=== PATIENT | female | born 1970 | race Caucasian/White ===

== ENCOUNTER 2018-05-31 15:37 | Emergency (ER) | payer BC ==
[2018-05-31 15:44] VITALS: BP 124/85; PULSE 98; RESP 16; TEMP 98.1
--- NOTE | 2018-05-31 15:50 | ED ---
Fall HPI - General Chief Complaint: Fall Stated Complaint: Ankle Injury, Slipped on ice Time Seen by Provider: 05/31/18 15:45 Source: patient Mode of arrival: ambulatory - History of Present Illness Initial Comments: 48yo female presenting today for chief complaint of left ankle injury after slipping falling ice. Patient states that just prior to arrival she slipped on ice twisting her left ankle. Patient denies head injury back pain neck pain or loss of consciousness. Patient denies use of anticoagulants. Patient states there is some soft tissue swelling of the left ankle. She states she has pain with fully weight bearing. Patient states it hurts with full range of motion of the left ankle. Patient denies any numbness tingling loss sensation coolness or pallor of the extremity. Remaining review of systems negative, patient denies any injury to any other extremity, fever, chills, shortness of breath, chest pain, back pain, abdominal pain, nausea or vomiting, numbness or tingling, dysuria or hematuria, constipation or diarrhea, headaches or visual changes, or any other complaints. Pt states she had previous nerve injury of the left LE and has residual decreased sensation distal to knee--no changes. - Related Data Previous Rx's Medication Instructions Recorded Ibuprofen 800 mg PO Q8H PRN 7 Days #21 tablet 05/31/18 Allergies Allergy/AdvReac Type Severity Reaction Status Date / Time acetaminophen Allergy Nausea & Verified 05/31/18 15:41 Vomiting Review of Systems ROS Statement: Those systems with pertinent positive or pertinent negative responses have been documented in the HPI. ROS Other: All systems not noted in ROS Statement are negative. Past Medical History Past Medical History: No Reported History History of Any Multi-Drug Resistant Organisms: None Reported Additional Past Surgical History / Comment(s): oral surgery Past Psychological History: No Psychological Hx Reported Smoking Status: Never smoker Past Alcohol Use History: Occasional Past Drug Use History: None Reported General Exam - General Exam Comments Initial Comments: General: The patient is awake and alert, in no distress, and does not appear acutely ill. Eye: Pupils are equal, round and reactive to light, extra-ocular movements are intact. No nystagmus. There is normal conjunctiva bilaterally. No signs of icterus. Ears, nose, mouth and throat: There are moist mucous membranes and no oral lesions. Neck: The neck is supple, there is no tenderness or JVD. Cardiovascular: There is a regular rate and rhythm. No murmur, rub or gallop is appreciated. Respiratory: Lungs are clear to auscultation, respirations are non-labored, breath sounds are equal. No wheezes, stridor, rales, or rhonchi. Musculoskeletal: Upon inspection of the ankles bilaterally there is soft tissue swelling over the lateral malleolus of the left ankle. Patient refuses to fully range at the left ankle secondary painful range of motion at the knee and hip of the left lower extremity. With full strength. Sensation intact both proximal and distal to injury site. No evidence of foot drop. Patient tender to palpation over the lateral malleolus no tenderness to patient the forefoot. DP pulses equal bilaterally 2+. Capillary refill less than 2 seconds Neurological: A&O x 3. CN II-XII intact, There are no obvious motor or sensory deficits. Coordination appears grossly intact. Speech is normal. Skin: Skin is warm and dry and no rashes or lesions are noted. Psychiatric: Cooperative, appropriate mood & affect, normal judgment. Limitations: no limitations Course Vital Signs 05/31/18 15:41 Temperature 98.1 F Pulse Rate 98 Respiratory 16 Rate Blood Pressure 124/85 O2 Sat by Pulse 100 Oximetry Medical Decision Making - Medical Decision Making 48 year presenting for left ankle pain. Patient neurovascularly intact upon examination. Nondisplaced fibula fracture on x-ray. Patient neurovascularly intact. Patient placed in posterior mold splint with stirrups. Patient given a prescription for crutches and given nonweightbearing instruction as well as instruction to follow-up with orthopedic surgery in the next 2-3 days. Return parameters were discussed at length the patient who verbalizes understanding. Denied questions aware of all follow-up instruction. Case discussed with Dr. Miramontes, who reviewed imaging studies. Disposition Clinical Impression: Fibula fracture, Ankle sprain, Fall due to ice or snow Disposition: HOME SELF-CARE Condition: Good Instructions (If sedation given, give patient instructions): Ankle Fracture (ED ) Additional Instructions: Please use medication as discussed. Please follow-up with orthopedic surgery within the next week. Please return to emergency room if the symptoms increase or worsen or for any other concerns. Prescriptions: Ibuprofen 800 mg PO Q8H PRN 7 Days #21 tablet PRN Reason: Pain Is patient prescribed a controlled substance at d/c from ED?: No Referrals: Paul Gallagher MD [Primary Care Provider] - 1-2 days Omar Saavedra PAC [PHYSICIAN EQUIPMENT PROCESSOR] - 1-2 days Time of Disposition: 16:01
--- NOTE | 2018-05-31 16:16 | XR ---
EXAMINATION TYPE: XR ankle complete LT DATE OF EXAM: 05/31/2018 COMPARISON: NONE HISTORY: Foot pain TECHNIQUE: 3 views FINDINGS: There is soft tissue swelling over the lateral malleolus. There is nondisplaced oblique fra cture distal fibula. There is no dislocation. Ankle mortise is anatomic. IMPRESSION: Acute fracture of the distal fibula.
--- NOTE | 2018-05-31 16:17 | XR ---
EXAMINATION TYPE: XR foot complete LT DATE OF EXAM: 05/31/2018 COMPARISON: NONE HISTORY: Foot pain ankle pain TECHNIQUE: 3 views FINDINGS: Metatarsals are intact. I see no fracture nor dislocation. Joint spaces are normal. There a re no erosions. IMPRESSION: Negative left foot exam. Nondisplaced distal fibula fracture is noted.
== END 2018-05-31 16:30 | disposition home or self-care (01) ==
LOC: EC 15:37
DX: S82.832A Other fracture of upper and lower end of left fibula, initial encounter for closed fracture (principal); S93.402A Sprain of unspecified ligament of left ankle, initial encounter; Z88.6 Allergy status to analgesic agent; W00.0XXA Fall on same level due to ice and snow, initial encounter; Y92.009 Unspecified place in unspecified non-institutional (private) residence as the place of occurrence of the external cause; X50.1XXA Overexertion from prolonged static or awkward postures, initial encounter
CPT/HCPCS: 29515; 99283

== ENCOUNTER 2019-03-02 06:17 | Day surgery (SDC) | payer BC ==
[2019-02-23 14:55] VITALS: BMI 24.4
--- NOTE | 2019-03-01 17:51 | P.HPOB ---
History of Present Illness H&P Date: 03/01/19 Chief Complaint: High grade cervical dysplasia. This patient is a pleasant 48 yr female who initially presented to me for a yearly examination and pap smear. Last pap smear prior was >10 years. 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 June and I discussed options and plan is to proceed with colposcopy and LEEP excision of the ecto/endo cervix. Review of Systems All systems: negative Past Medical History Past Medical History: No Reported History Additional Past Medical History / Comment(s): HGSIL of cervix 12/2018 History of Any Multi-Drug Resistant Organisms: None Reported Additional Past Surgical History / Comment(s): oral surgery LAST WEEK-OUT PT. WISDOM TEETH REMOVED Past Anesthesia/Blood Transfusion Reactions: No Reported Reaction Past Psychological History: No Psychological Hx Reported Smoking Status: Never smoker Past Alcohol Use History: None Reported Past Drug Use History: None Reported - Past Family History Mother Family Medical History: Deep Vein Thrombosis (DVT) Medications and Allergies Home Medications Medication Instructions Recorded Confirmed Type Ibuprofen [Advil] 200 mg PO Q8HR PRN 02/23/19 02/23/19 History Allergies Allergy/AdvReac Type Severity Reaction Status Date / Time acetaminophen Allergy Nausea & Verified 02/23/19 14:47 Vomiting adhesive tape Allergy CAUSED Verified 02/23/19 14:56 BURN AT APPLICATION SITE Exam - OBG Physical Exam Abdomen: bowel sounds normal, no diffuse tenderness, no bruit present, no guarding noted, no hepatomegaly, no splenomegaly, no mass Vulva: both: normal Vagina: normal moisture, no discharge Cervix: no lesion, no discharge Uterus: normal size, normal contour Results Colposcopy on 01/27 revealed DARVIN II of the ectocervix. 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 Plan is colposcopy with LEEP of the ecto and endocervix. I had a long discussion with June about this procedure and risks: infection, bleeding, possible cervical incompetence, and possible need for further surgery. All of her questions have been answered and a written consent obtained. (1) DARVIN II (cervical intraepithelial neoplasia II) Status: Acute Code(s): N87.1 - MODERATE CERVICAL DYSPLASIA SNOMED Code(s): 288317451
[~2019-03-02 06:17] MED LIST: HYDROmorphone 0.5 MG/0.5 ML SYRINGE IVP PRN; LACTATED RINGERS 1,000 ML IV SCH; LIDOCAINE 1% 20 ML VIAL (10MG/ML) FOR IV START INTRADERMA PRN; ONDANSETRON 4 MG/2 ML VIAL IVP ONE; Pre Op ABX Message 1 EACH MISC MISCELLANE ONE
[2019-03-02] MEDS ORDERED: IODINE/POTASS IOD (LUGOLS) 8 ML BTL TOPICAL ONE (07:21)
[2019-03-02] MEDS ORDERED: FERRIC SUBSULFATE (MONSELS) JAR TOPICAL ONE (07:21)
[2019-03-02] MEDS ORDERED: fentaNYL (PF) 50 MCG/ML 2 ML AMP ONE (07:25)
[2019-03-02] MEDS ORDERED: MIDAZOLAM 2 MG/2 ML VIAL ONE (07:25)
[2019-03-02] MEDS ORDERED: KETOROLAC 30 MG/ML 1 ML VIAL ONE (07:25)
[2019-03-02] MEDS ORDERED: LIDOCAINE 1% INJ 10MG/ML (20 ML MDV) ONE (07:25)
[2019-03-02] MEDS ORDERED: PROPOFOL 10 MG/ML 20 ML VIAL IV ONE (07:25)
--- NOTE | 2019-03-02 08:08 | P.OP ---
Date of Procedure: 03/02/19 Preoperative Diagnosis: High grade cervical dysplasia Postoperative Diagnosis: Same Procedure(s) Performed: Colposcopy with LEEP excision of the ectocervix endocervix Anesthesia: MAC Surgeon: Fadi Medina Estimated Blood Loss (ml): 25 Urine output (ml): 15 Pathology: other (Ectocervix and endocervix) Condition: stable Disposition: PACU Indications for Procedure: Please see dictated H&P for intimate details of this patient's admission. Brief summary this is a pleasant 48-year-old female with high-grade ectocervical dysplasia on colposcopy. Patient I discussed treatment options and elected proceed with LEEP excision of this area. Patient understands this surgery and risks including risks of infection, bleeding, possible recurrence or persistence of this lesion. All the patient's questions are answered and a written consent is obtained. Operative Findings: This patient had acetowhite changes as demarcated in the office. Description of Procedure: This patient is taken to the operating room where she is laid in the supine position. She subsequently was general mask anesthesia without incident. With adequate level of anesthesia she has a vaginal perineal prep and drape. She's placed in dorsal lithotomy position. First drain the bladder for 15 mL of clear urine. The laser speculum was placed in the vagina and the cervix is well visualized. Colposcopy is performed with Lugol solution area of abnormality is demarcated. With this done using a large LEEP loop at a 60/70 cutting/cautery setting the entire ectocervix is excised. Small LEEP loop was then used to excise some of the endocervix. Cauterization is then done of the endocervical and ectocervical margins in bed. Excellent hemostasis is noted at this time. Monsel solution is applied for added hemostasis. There are no complications. All counts are correct 3. Patient is awakened from anesthesia and taken recovery room in satisfactory condition.
[2019-03-02 08:14] VITALS: TEMP 97.7
[2019-03-02 08:48] VITALS: RESP 18
[2019-03-02 09:01] VITALS: BP 113/80; PULSE 83
== END 2019-03-02 09:16 | disposition home or self-care (01) ==
LOC: OR 06:17
PROVIDERS: ATTEND Obstetrics & Gynecology
DX: N87.1 Moderate cervical dysplasia (principal); Z91.048 Other nonmedicinal substance allergy status; Z88.6 Allergy status to analgesic agent; Z98.818 Other dental procedure status; Z82.49 Family history of ischemic heart disease and other diseases of the circulatory system
CPT/HCPCS: 57461; J2250; J2405; J2001; J3010; J1885; J2704; 88305; 88307

== ENCOUNTER → 2019-05-29 | Outpatient (CLI) | payer BC ==
--- NOTE | 2019-05-29 09:55 | MM ---
Reason for exam: screening (asymptomatic). Baseline mammogram. History: Patient is nulliparous. Took hormonal contraceptives for 13 years beginning at age 21. Physical Findings: Nurse did not find any significant physical abnormalities on exam. MG Screening Mammo w CAD Bilateral CC and MLO view(s) were taken. The breast tissue is heterogeneously dense. This may lower the sensitivity of mammography. No suspicious abnormality. These results were verbally communicated with the patient and result sheet given to the patient on 05/29/19. ASSESSMENT: Negative, BI-RAD 1 RECOMMENDATION: Routine screening mammogram of both breasts in 1 year.
== END | disposition home or self-care (01) ==
LOC: RADMAMWWP 08:20
PROVIDERS: ATTEND Obstetrics & Gynecology
DX: Z12.31 Encounter for screening mammogram for malignant neoplasm of breast (principal)
CPT/HCPCS: 77067

== ENCOUNTER → 2021-05-26 | Outpatient (CLI) | payer BC ==
--- NOTE | 2021-05-29 08:44 | MM ---
Reason for exam: screening (asymptomatic). Last mammogram was performed 2 years ago. History: Patient is nulliparous. Took hormonal contraceptives for 13 years beginning at age 21. Physical Findings: A clinical breast exam by your physician is recommended on an annual basis and results should be correlated with mammographic findings. MG Screening Mammo w CAD Bilateral CC and MLO view(s) were taken. Prior study comparison: May 29, 2019, bilateral MG screening mammo w CAD. Finding: There is an obscured mass in the central position of the left breast. ASSESSMENT: Incomplete: need additional imaging evaluation, BI-RAD 0 RECOMMENDATION: Special view mammogram and ultrasound of the left breast. [facility] will attempt to contact patient to return for supplemental views and ultrasound.
== END | disposition home or self-care (01) ==
LOC: RADMAMWWP 11:25
PROVIDERS: ATTEND Obstetrics & Gynecology
DX: Z12.31 Encounter for screening mammogram for malignant neoplasm of breast (principal)
CPT/HCPCS: 77067

== ENCOUNTER → 2021-05-30 | Outpatient (CLI) | payer BC ==
--- NOTE | 2021-05-30 09:05 | MM ---
Reason for exam: additional evaluation requested from abnormal screening. Last mammogram was performed less than 1 month ago. History: Patient is nulliparous. Took hormonal contraceptives for 13 years beginning at age 21. Physical Findings: A clinical breast exam by your physician is recommended on an annual basis and results should be correlated with mammographic findings. MG Work Up Mamm w CAD LT Spot compression CC, spot compression MLO, and LM view(s) were taken of the left breast. Prior study comparison: May 26, 2021, bilateral MG screening mammo w CAD. May 29, 2019, bilateral MG screening mammo w CAD. The breast tissue is heterogeneously dense. This may lower the sensitivity of mammography. Can't rule out obscured lesions fibroglandular dense tissue. These results were verbally communicated with the patient and result sheet given to the patient on 05/30/21. ASSESSMENT: Incomplete: need additional imaging evaluation, BI-RAD 0 RECOMMENDATION: Ultrasound of the left breast.
--- NOTE | 2021-05-30 09:06 | USB ---
Reason for exam: additional evaluation requested from abnormal screening. History: Patient is nulliparous. Took hormonal contraceptives for 13 years beginning at age 21. US Breast Workup LT Left complete breast ultrasound includes all four quadrants, the retroareolar region and axilla. Finding demonstrates a 0.8 x 0.6 x 0.6cm round simple cyst at 3 o'clock behind nipple. These results were verbally communicated with the patient and result sheet given to the patient on 05/30/21. ASSESSMENT: Probably benign, BI-RAD 3 RECOMMENDATION: Follow-up diagnostic mammogram of the left breast in 6 months.
== END | disposition home or self-care (01) ==
LOC: RADMAMWWP 07:39
PROVIDERS: ATTEND Obstetrics & Gynecology
DX: R92.8 Other abnormal and inconclusive findings on diagnostic imaging of breast (principal)
CPT/HCPCS: 77065

== ENCOUNTER → 2021-12-22 | Outpatient (CLI) | payer BC ==
--- NOTE | 2021-12-22 14:28 | MM ---
Reason for Exam: Follow-up at short interval from prior study. Last screening mammogram was performed 7 month(s) ago. Patient History: Menarche at age 15. Patient has no children. Perimenopausal. Hormonal Contraceptives for 13 years from age 21 until age 34. Risk Values: Summer 5 year model risk: 1.0%. NCI Lifetime model risk: 10.0%. Prior Study Comparison: 05/29/2019 Bilateral Screening Mammogram, [facility]. 05/26/2021 Bilateral Screening Mammogram, [facility]. 05/30/2021 Left Diagnostic Mammogram, [facility]. Tissue Density: Left: The breast tissue is heterogeneously dense. This may lower the sensitivity of mammography. Findings: Analyzed By CAD. Stable circumscribed equal density mass within the posterior left breast at 3:00. This corresponds to a simple cyst on previous breast ultrasound. No new suspicious masses or worrisome cluster microcalcifications. Overall Assessment: Benign, BI-RAD 2 Management: Screening Mammogram of both breasts in 6 months. A clinical breast exam by your physician is recommended on an annual basis and results should be correlated with mammographic findings. This exam should not preclude additional follow-up of suspicious palpable abnormalities. Results were given to the patient verbally at the time of exam. Electronically signed and approved by: Gadiel Mendoza D.O.
== END | disposition home or self-care (01) ==
LOC: RADMAMWWP 14:02
PROVIDERS: ATTEND Obstetrics & Gynecology
DX: R92.8 Other abnormal and inconclusive findings on diagnostic imaging of breast (principal)
CPT/HCPCS: 77061; 77065

== ENCOUNTER → 2022-07-30 | Outpatient (CLI) | payer BC ==
--- NOTE | 2022-07-31 19:20 | MM ---
Reason for Exam: Screening (asymptomatic). Last mammogram was performed 1 year(s) and 3 month(s) ago. Patient History: Menarche at age 15. Patient has no children. Perimenopausal. Hormonal Contraceptives for 13 years from age 21 until age 34. Last menstrual period: 06/23/2022 Risk Values: Summer 5 year model risk: 1.1%. NCI Lifetime model risk: 9.9%. Prior Study Comparison: 05/26/2021 Bilateral Screening Mammogram, [facility]. 05/30/2021 Left Diagnostic Mammogram, [facility]. 12/22/2021 Left MG 3D diag mammo w/cad LT, [facility]. Tissue Density: The breast tissue is heterogeneously dense. This may lower the sensitivity of mammography. Findings: Analyzed By CAD. 2 areas of chronic nodularity left breast middle depth and posterior depth. There is no suspicious group of microcalcifications or new suspicious mass in either breast. Overall Assessment: Benign, BI-RAD 2 Management: Screening Mammogram of both breasts in 1 year. . Patient should continue monthly self-breast exams. A clinical breast exam by your physician is recommended on an annual basis. This exam should not preclude additional follow-up of suspicious palpable abnormalities. Note on Summer scores and lifetime risk: 1. A Summer score greater than 3% is considered moderate risk. If this is the case, consider specialist referral to assess eligibility for a risk reducing agent. 2. If overall lifetime risk for the development of breast cancer is 20% or higher, the patient may qualify for future screening with alternating mammogram and breast MRI. Electronically signed and approved by: Nupur Lindsay M.D. Radiologist
== END | disposition home or self-care (01) ==
LOC: RADMAMWWP 16:36
PROVIDERS: ATTEND Obstetrics & Gynecology
DX: Z12.31 Encounter for screening mammogram for malignant neoplasm of breast (principal)
CPT/HCPCS: 77067

== ENCOUNTER → 2023-11-29 | Outpatient (CLI) | payer BC ==
--- NOTE | 2023-12-03 14:26 | MM ---
Reason for Exam: Screening (asymptomatic). Last mammogram was performed 1 year(s) and 3 month(s) ago. Patient History: Menarche at age 15. Patient has no children. Perimenopausal. Hormonal Contraceptives for 13 years from age 21 until age 34. Risk Values: Summer 5 year model risk: 1.1%. NCI Lifetime model risk: 9.7%. Prior Study Comparison: 05/30/2021 Left Diagnostic Mammogram, [facility]. 12/22/2021 Left MG 3D diag mammo w/cad LT, [facility]. 07/30/2022 Bilateral MG screening mammo w CAD, [facility]. Tissue Density: The breasts are heterogeneously dense, which may obscure small masses. Findings: Analyzed By CAD. Right breast: There is no suspicious group of microcalcifications or new suspicious mass. Left breast: There is no suspicious group of microcalcifications or new suspicious mass. Overall Assessment: Negative, BI-RAD 1 Management: Screening Mammogram of both breasts in [address] [facility] will attempt to contact patient to return for supplemental views and ultrasound if indicated. Patient should continue monthly self-breast exams. A clinical breast exam by your physician is recommended on an annual basis. This exam should not preclude additional follow-up of suspicious palpable abnormalities. Note on Summer scores and lifetime risk: 1. A Summer score greater than 3% is considered moderate risk. If this is the case, consider specialist referral to assess eligibility for a risk reducing agent. 2. If overall lifetime risk for the development of breast cancer is 20% or higher, the patient may qualify for future screening with alternating mammogram and breast MRI. Electronically signed and approved by: Nilay Griffin DO
== END | disposition home or self-care (01) ==
LOC: RADMAMWWP 13:17
PROVIDERS: ATTEND Obstetrics & Gynecology Obstetrics
DX: Z12.31 Encounter for screening mammogram for malignant neoplasm of breast
CPT/HCPCS: 77067

== ENCOUNTER 2024-02-26 17:03 | Emergency (ER) | payer BC ==
--- NOTE | 2024-02-26 17:44 | ED ---
General Adult HPI - General Chief complaint: Fall Stated complaint: fall, L leg injury Time Seen by Provider: 02/26/24 17:08 Source: patient, RN notes reviewed Mode of arrival: wheelchair Limitations: no limitations - History of Present Illness Initial comments: 53-year-old female presents to the emergency department for evaluation of left lower extremity injury. Patient reports that she was walking down the stairs with a stack of towels when she slipped. She states that she fell down about 8 stairs. She does report that her left leg was behind her and she twisted at the knee causing injury. She denies head injury, blood thinners. - Related Data Home Medications Medication Instructions Recorded Confirmed Ibuprofen [Advil] 200 mg PO Q8HR PRN 02/23/19 03/02/19 Allergies Allergy/AdvReac Type Severity Reaction Status Date / Time acetaminophen Allergy Nausea & Verified 02/26/24 17:07 Vomiting adhesive tape Allergy CAUSED Verified 02/26/24 17:07 BURN AT APPLICATION SITE aspirin AdvReac Nausea & Verified 02/26/24 17:07 Vomiting Review of Systems ROS Statement: Those systems with pertinent positive or pertinent negative responses have been documented in the HPI. ROS Other: All systems not noted in ROS Statement are negative. 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 WISDOM TEETH REMOVED Past Anesthesia/Blood Transfusion Reactions: No Reported Reaction Past Psychological History: No Psychological Hx Reported Smoking Status: Never smoker Past Alcohol Use History: None Reported Past Drug Use History: None Reported - Past Family History Mother Family Medical History: Deep Vein Thrombosis (DVT) General Exam Limitations: no limitations General appearance: alert, in no apparent distress Head exam: Present: atraumatic, normocephalic, normal inspection Eye exam: Present: normal appearance, PERRL, EOMI. Absent: scleral icterus, conjunctival injection, periorbital swelling ENT exam: Present: normal exam, mucous membranes moist Extremities exam: Present: full ROM, tenderness (left knee), normal capillary refill, pedal edema (left ), other (left knee edema). Absent: joint swelling, calf tenderness Neurological exam: Present: alert, oriented X3 Psychiatric exam: Present: normal affect, normal mood Skin exam: Present: warm, dry, intact, normal color Course Vital Signs 02/26/24 02/26/24 02/26/24 17:04 18:36 19:59 Temperature 98.1 F 98.1 F 98.2 F Pulse Rate 100 101 H 71 Respiratory 20 18 18 Rate Blood Pressure 140/76 127/79 124/81 O2 Sat by Pulse 99 99 98 Oximetry Medical Decision Making - Medical Decision Making Was pt. sent in by a medical professional or institution (, PA, CRTT, urgent care, hospital, or correction...) When possible be specific @ -No Did you speak to anyone other than the patient for history (EMS, parent, family, police, friend...)? What history was obtained from this source @ -No Did you review nursing and triage notes (agree or disagree)? Why? @ -I reviewed and agree with nursing and triage notes Were old charts reviewed (outside hosp., previous admission, EMS record, old EKG, old radiological studies, urgent care reports/EKG's, correction records)? Report findings @ -No old charts were reviewed Differential Diagnosis (chest pain, altered mental status, abdominal pain women, abdominal pain men, vaginal bleeding, weakness, fever, dyspnea, syncope, headache, dizziness, GI bleed, back pain, seizure, CVA, palpatations, mental health, musculoskeletal)? @ -Differential Musculoskeletal Muscular strain, contusion, ligament sprain, fracture, arthritis, septic arthritis, bursitis, cellulitis, muscle spasm, nerve compression, DVT, arterial occlusion, herpes zoster, electrolyte abnormality, tumor.... This is not meant to be in all inclusive list EKG interpreted by me (3pts min.). @ -None X-rays interpreted by me (1pt min.). @ -X-ray of the left knee shows a small joint effusion without evidence of acute fracture X-ray of the left foot shows possible remote injury to the fibula CT interpreted by me (1pt min.). @ -None done U/S interpreted by me (1pt. min.). @ -None done What testing was considered but not performed or refused? (CT, X-rays, U/S, labs)? Why? @ -None What meds were considered but not given or refused? Why? @ -None Did you discuss the management of the patient with other professionals (professionals i.e. , PA, CRTT, lab, RT, psych nurse, social welfare administrator, pressure steamer tender, teacher, border patrol officer, rn case mgr)? Give summary @ -No Was smoking cessation discussed for >3mins.? @ -No Was critical care preformed (if so, how long)? @ -No Were there social determinants of health that impacted care today? How? (Homelessness, low income, unemployed, alcoholism, drug addiction, transportation, low edu. Level, literacy, decrease access to med. care, senior care, rehab)? @ -No Was there de-escalation of care discussed even if they declined (Discuss DNR or withdrawal of care, Hospice)? DNR status @ -No What co-morbidities impacted this encounter? (DM, HTN, Smoking, COPD, CAD, Cancer, CVA, ARF, Chemo, Hep., AIDS, mental health diagnosis, sleep apnea, morbid obesity)? @ -None Was patient admitted / discharged? Hospital course, mention meds given and route, prescriptions, significant lab abnormalities, going to OR and other pertinent info. @ -Discharged. Patient presented to the emergency department for evaluation of left knee and foot injury. X-rays obtained of the left knee shows a small joint effusion without evidence of acute fracture. X-ray of the left foot shows a possible remote injury to the fibula, patient does not have any point tenderness over the fibula. Patient will be placed in a knee immobilizer and provided crutches. Advised to follow-up with orthopedics. She is understanding and agreeable with this plan. Patient stable at time of discharge. Case discussed with Dr. Bonner Undiagnosed new problem with uncertain prognosis? @ -No Drug Therapy requiring intensive monitoring for toxicity (Heparin, Nitro, Insulin, Cardizem)? @ -No Were any procedures done? @ -No Diagnosis/symptom? @ -Knee sprain Acute, or Chronic, or Acute on Chronic? @ -acute Uncomplicated (without systemic symptoms) or Complicated (systemic symptoms)? @ -uncomplicated Side effects of treatment? @ -No Exacerbation, Progression, or Severe Exacerbation? @ -No Poses a threat to life or bodily function? How? (Chest pain, USA, ID, pneumonia, PE, COPD, DKA, ARF, appy, cholecystitis, CVA, Diverticulitis, Homicidal, Suicidal, threat to staff... and all critical care pts) @ -No Disposition Clinical Impression: Knee sprain Disposition: HOME SELF-CARE Condition: Stable Instructions (If sedation given, give patient instructions): Knee Sprain (ED), Fall Prevention (ED) Additional Instructions: Rest, ice, elevate the leg. Please follow up with orthopedics. Return to the emergency department for new or worsening symptoms. Is patient prescribed a controlled substance at d/c from ED?: No Referrals: Paul Gallagher [Primary Care Provider] - 1-2 days Perez Krishnan MD [Medical Doctor] - 1-2 days
--- NOTE | 2024-02-26 17:58 | XR ---
EXAMINATION TYPE: XR foot complete LT DATE OF EXAM: 02/26/2024 5:37 PM COMPARISON: 05/31/2018 CLINICAL INDICATION: Female, 53 years old with history of fall; [facility] TECHNIQUE: XR foot complete LT examined in the AP, oblique, and lateral projections. FINDINGS: No evidence of any acute osseous pathology. Multifocal degeneration changes throughout the joints of the foot with osteophyte formation and joint space narrowing. Accessory ossicles are present. IMPRESSION: No evidence for acute fracture, remote fracture of the distal fibula. Multifocal degeneration changes throughout the joints of the foot. Remote injury to the distal fibula suggested correlate with [facility], , 02/26/2024 5:56 PM
--- NOTE | 2024-02-26 17:59 | XR ---
EXAMINATION TYPE: XR knee complete LT DATE OF EXAM: 02/26/2024 5:37 PM COMPARISON: None CLINICAL INDICATION: Female, 53 years old with history of fall; pain TECHNIQUE: XR knee complete LT 3 views submitted. FINDINGS: No evidence of any acute osseous pathology, soft tissue swelling. Small joint effusion pr esent. Tricompartmental osteophyte formation involving the femoral condyles, tibial plateau and hampton la. Mild joint space narrowing. A fabella is present. IMPRESSION: 1. No acute osseous pathology. 2. Moderate patellofemoral osteoarthritic changes. 3. Small joint effusion present. [facility], , 02/26/2024 5:57 PM
[2024-02-26 18:39] VITALS: RESP 18
[2024-02-26 20:01] VITALS: BP 124/81; PULSE 71; TEMP 98.2
== END 2024-02-26 20:01 | disposition home or self-care (01) ==
LOC: EC 17:03
DX: S83.91XA Sprain of unspecified site of right knee, initial encounter (principal); Z88.6 Allergy status to analgesic agent; W10.9XXA Fall (on) (from) unspecified stairs and steps, initial encounter
CPT/HCPCS: 73562; 73630; 99283; L1830